=== PATIENT | male | born 1970 | race Caucasian/White ===

== ENCOUNTER 2020-07-18 13:54 | Outpatient (CLI) | payer OTHER ==
--- NOTE | 2020-07-18 15:22 | ULT ---
DOPPLER ARTERIAL EVALUATION OF THE LEFT LOWER EXTREMITY: INDICATION: History of left leg pain. TECHNIQUE: There is a triphasic waveform of the left common femoral artery, left superficial femoral artery, lef t posterior tibial artery, with more biphasic waveform within the profunda femoral and visualized bas ilar artery. The left popliteal artery was not assessed. IMPRESSION: 1. Mild atherosclerotic disease suspected within the left dorsalis pedis artery and left profunda fe moral artery. No definite hemodynamically significant stenosis demonstrated. 2. Nonassessment of the left popliteal artery. POS: [facility]
== END 2020-07-18 13:55 | disposition home or self-care (01) ==
LOC: ULT 13:54
PROVIDERS: ATTEND Psychiatry & Neurology Neurology
DX: Z02.71 Encounter for disability determination (principal); I73.9 Peripheral vascular disease, unspecified
CPT/HCPCS: 93926